=== PATIENT | male | born 2005 | race Caucasian/White ===

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

== ENCOUNTER 2023-05-17 08:47 | Emergency (ER) | payer MEDICAID ==
[~2023-05-17] VITALS: Ht 193 cm; Wt 103.2 kg
[~2023-05-17 08:47] MED LIST changes: +ONDA4TAB12 PO
[2023-05-17 08:50] VITALS: BP 147/75
[2023-05-17] MEDS ORDERED: AMOX-117 PO (09:38)
[2023-05-17] MEDS ORDERED: amox tr/potassium clavulanate 875/125mg TAB PO ONE (09:40)
== END 2023-05-17 09:54 | disposition home or self-care (01) ==
LOC: ER 08:48
DX: K04.7 Periapical abscess without sinus (principal)
CPT/HCPCS: 99283

== ENCOUNTER 2024-05-25 10:10 | Emergency (ER) | payer MEDICAID ==
[~2024-05-25] VITALS: Ht 193 cm; Wt 99.4 kg
[~2024-05-25 10:10] MED LIST changes: +ONDA-243 PO; -ONDA4TAB12 PO
[2024-05-25 10:17] VITALS: TEMP 98.7
[2024-05-25 12:07] LABS: BASOPHILS % (AUTO) 0.3 % (0-1); EOSINOPHILS # (AUTO) 0.1 X10'3 (0-0.9); EOSINOPHILS % (AUTO) 1.2 % (0-6); HEMATOCRIT 49.2 % (42.0-52.0); HEMOGLOBIN 16.7 g/dl (14.0-17.9); LYMPHOCYTES # (AUTO) 2.4 X10'3 (1.1-4.8); LYMPHOCYTES % (AUTO) 27.5 % (21-51); MEAN CORPUSCULAR HEMOGLOBIN 29.5 PG (27.0-31.0); MEAN CORPUSCULAR HGB CONC 33.9 g/dL (33.0-36.5); MEAN PLATELET VOLUME 9.2 FL (7.4-10.4); MONOCYTES # (AUTO) 0.6 X10'3 (0-0.9); MONOCYTES % (AUTO) 6.8 % (2-12); NEUTROPHILS # (AUTO) 5.6 X10'3 (1.8-7.7); NEUTROPHILS % (AUTO) 64.2 % (42-75); PLATELET COUNT 181 X10'3 (140-440); RED BLOOD COUNT 5.66 X10'6 (4.70-6.10); RED CELL DISTRIBUTION WIDTH 12.3 % (11.5-14.5); WHITE BLOOD COUNT 8.7 X10'3 (4.5-11.0)
[2024-05-25 12:29] LABS: ALANINE AMINOTRANSFERASE 34 U/L (12-78); ALBUMIN/GLOBULIN RATIO 1.2 (1.1-1.5); ALKALINE PHOSPHATASE 73 IU/L (20-180); ANION GAP 7 (8-16); ASPARTATE AMINO TRANSFERASE 11 U/L (10-37); BILIRUBIN,TOTAL 0.6 MG/DL (0.1-1.0); BLOOD UREA NITROGEN 13 MG/DL (7-18); BUN/CREATININE RATIO 14.9 (10.0-20.0); CALCIUM 8.9 MG/DL (8.5-10.1); CHLORIDE 100 MMOL/L (99-107); CREATININE 0.87 MG/DL (0.60-1.10); MAGNESIUM 1.6 MG/DL (1.5-2.4); POTASSIUM 4.2 MMOL/L (3.5-5.1); SODIUM 135 MMOL/L (135-145); TOTAL CARBON DIOXIDE 28.4 MMOL/L (24-32); TOTAL PROTEIN 7.3 G/DL (6.4-8.2); eCRCL 166 ML/MIN; eGFR > 90 ML/MIN
[2024-05-25 12:30] LABS: GLUCOSE 435 MG/DL (70-104)
[2024-05-25] MEDS: normal saline 1000ml 1,000 ML IV ONE ×2 (13:49)
[2024-05-25 15:24] VITALS: BP 140/72; PULSE 78; RESP 18; O2SAT 99
== END 2024-05-25 15:32 | disposition home or self-care (01) ==
LOC: ER 10:11
DX: R07.89 Other chest pain (principal); E11.65 Type 2 diabetes mellitus with hyperglycemia; R20.0 Anesthesia of skin; Z79.2 Long term (current) use of antibiotics
CPT/HCPCS: 36415; 80053; 82948; 83735; 85025; 93005; 99284; J7030; 96360